=== PATIENT | male | born 1965 ===

== ENCOUNTER 2018-01-04 06:00 | Day surgery (SDC) | payer OTHER ==
[2018-01-04] MEDS ORDERED: PERCOCET 5-3251 EACH PO (08:34)
== END 2018-01-04 14:40 | disposition home or self-care (01) ==
LOC: CIR.AMB 06:00
DX: D01.3 Carcinoma in situ of anus and anal canal (principal); K64.8 Other hemorrhoids; K62.89 Other specified diseases of anus and rectum